=== PATIENT | female | born 1980 | race Hispanic/Latino ===

== ENCOUNTER 2023-09-14 13:34 | Emergency (ER) | payer OTHER, SELFPAY ==
[2023-09-14] MEDS ORDERED: NA CHLORIDE 0.9% 1,000 ML ONE (15:33)
[2023-09-14 16:38] LABS: Specific Gravity < 1.005 (1.005-1.030); Urine Bilirubin NEGATIVE (Negative); Urine Blood Negative (Negative); Urine Clarity Clear (Clear); Urine Color Colorless (Yellow); Urine Glucose NEGATIVE (Negative); Urine Ketones NEGATIVE (Negative); Urine Microscopic Reflex YN NO UMIC; Urine Nitrite NEGATIVE (Negative); Urine Protein NEGATIVE (Negative); Urine Urobilinogen Normal (Normal); Urine pH 6.5 (5.0-7.0)
[2023-09-14 16:53] LABS: Albumin 3.6 g/dL (3.4-5.0); Albumin/Globulin Ratio 0.9 (1.1-1.8); Anion Gap 7.6 mEq/L (5.0-15.0); Bilirubin Total 0.3 mg/dL (0.2-1.0); Globulin 3.8 g/dL (2.3-3.5); Potassium 3.6 mEq/L (3.5-5.1); Protein, Total 7.4 g/dL (6.4-8.2); Troponin High Sensitivity 3.6 pg/mL (<58.9)
[2023-09-14 17:02] LABS: Absolute Eosinophils 0.1 K/uL (0-0.5); Absolute Lymphocytes (CBC) 3.3 K/uL (0.7-4.9); Absolute Monocytes 0.5 K/uL (0.1-1.3); Absolute Neutrophil 3.1 K/uL (1.8-8.0); Basophils % 0.6 % (0-1.3); Eosinophils % 1.6 % (0-4.4); Hematocrit 37.3 % (36.0-45.0); Hemoglobin 12.1 g/dL (12.0-15.0); Lymphocytes % 47.5 % (15.3-44.8); MCH 25.1 pg (27.0-35.0); MCHC 32.5 g/dL (32.0-36.0); MCV 77.3 fL (80-100); MPV 8.8 fL (7.6-11.3); Monocytes % 6.7 % (3.3-12.3); Neutrophils % 43.6 % (41.7-73.7); Nucleated Red Blood Cells % 0.1 % (0-0); Platelets 225 thou/uL (152-406); RBC Red Blood Cell Count 4.83 M/uL (3.86-4.86); Red Cell Distribution Width 14.5 % (12.1-15.2)
--- NOTE | 2023-09-14 17:45 | RAD REPORT ---
EXAM DESCRIPTION: CT - Abdomen Pelvis W Contrast - 09/14/2023 5:18 pm CLINICAL HISTORY: Abdominal pain COMPARISON: none. TECHNIQUE: Computed axial tomography of the abdomen pelvis was obtained. 100 cc Isovue-300 was admin istered intravenously. Oral contrast was not requested which limits evaluation of bowel and appendix All CT scans are performed using dose optimization technique as appropriate and may include automated exposure control or mA/KV adjustment according to patient size. FINDINGS: Cholecystectomy The liver, spleen, pancreas, adrenal and kidneys appear unremarkable. Right extrarenal pelvis There is no evidence of diverticulitis. Normal appendix No adnexal mass Tiny umbilical hernia IMPRESSION: No acute abnormality is displayed.
--- NOTE | 2023-09-14 17:50 | ER ---
Nurse's Notes [facility] Name: Denise Oshea Age: 43 yrs Sex: Female : 1980 Arrival Date: 09/14/2023 Time: 13:34 Bed 9 Private MD: Diagnosis: Upper abdominal pain, unspecified Presentation: 09/13 13:44 Chief complaint: Patient states: Upper abdominal pain since 1115. No fever. Denies ll1 N/V/D. Coronavirus screen: Client denies travel out of the [place] in the last 14 days. At this time, the client does not indicate any symptoms associated with coronavirus-19. Ebola Screen: Patient denies travel to an Ebola-affected area in the 21 days before illness onset. Initial Sepsis Screen: Does the patient meet any 2 criteria? No. Patient's initial sepsis screen is negative. Does the patient have a suspected source of infection? No. Patient's initial sepsis screen is negative. Risk Assessment: Do you want to hurt yourself or someone else? Patient reports no desire to harm self or others. Onset of symptoms was September 14, 2023. 13:44 Method Of Arrival: Ambulatory ll1 13:44 Acuity: MOHIT 3 ll1 Triage Assessment: 13:45 General: Appears uncomfortable, Behavior is calm, cooperative, appropriate for age. ll1 Pain: Complains of pain in epigastric area Quality of pain is described as aching, crampy. GI: Reports lower abdominal pain, upper abdominal pain, cramping. CNA LTC: 16:34 LMP N/A - control method, Not tl4 Historical: - Allergies: 13:46 No Known Allergies; ll1 - Home Meds: 13:46 None [Active]; ll1 - PMHx: 13:46 None; ll1 - PSHx: 13:46 gallstones removed; Tonsillectomy; section; ll1 - Immunization history:: Adult Immunizations up to date. - Infectious Disease History:: Denies. - Social history:: Smoking status: Patient denies any tobacco usage or history of. Screenin:[facility] ED Fall Risk Assessment (Adult) History of falling in the last 3 months, tl4 including since admission No falls in past 3 months (0 pts) Confusion or Disorientation No (0 pts) Intoxicated or Sedated No (0 pts) Impaired Gait No (0 pts) Mobility Assist Device Used No (0 pt) Altered Elimination No (0 pt) Score/Fall Risk Level 0 - 2 = Low Risk Oriented to surroundings, Maintained a safe environment, Educated pt \T\ family on fall prevention, incl call for assistance when getting out of bed, Assessed \T\ reinforced patient's understanding of fall precautions. Abuse screen: Denies threats or abuse. Denies injuries from another. Nutritional screening: No deficits noted. Tuberculosis screening: No symptoms or risk factors identified. Assessment: 16:32 General: Appears in no apparent distress. Behavior is calm, cooperative. Pain: Denies tl4 pain. Neuro: Level of Consciousness is awake, alert, obeys commands, Oriented to person, place, time, situation, Moves all extremities. Full function Speech is normal. Cardiovascular: Capillary refill < 3 seconds Patient's skin is warm and dry. Respiratory: Airway is patent Respiratory effort is even, unlabored, Respiratory pattern is regular, symmetrical, Breath sounds are clear bilaterally. GI: Bowel sounds present X 4 quads. Abd is soft and non tender X 4 quads. : No signs and/or symptoms were reported regarding the genitourinary system. EENT: No signs and/or symptoms were reported regarding the EENT system. Derm: No signs and/or symptoms reported regarding the dermatologic system. Musculoskeletal: No signs and/or symptoms reported regarding the musculoskeletal system. 18:09 Reassessment: Patient and/or family updated on plan of care and expected duration. Pain tl4 level reassessed. Patient is alert, oriented x 3, equal unlabored respirations, skin warm/dry/pink. Patient states feeling better. Patient states symptoms have improved. Vital Signs: 13:44 BP 149 / 92; Pulse 69; Resp 17; Temp 97.3; Pulse Ox 99% ; Weight 88.9 kg; Height 5 ft. ll1 4 in. ; Pain 3/10; 16:33 BP 132 / 78; Pulse 70; Resp 16; Pulse Ox 100% on R/A; Pain 0/10; tl4 18:09 BP 122 / 70; Pulse 70; Resp 16; Temp 98.2(O); Pulse Ox 100% ; Pain 0/10; tl4 13:44 Body Mass Index 33.64 (88.90 kg, 162.56 cm) ll1 13:44 Pain Scale: Adult ll1 16:33 Pain Scale: Adult tl4 18:09 Pain Scale: Adult tl4 ED Course: 13:36 Patient arrived in ED. mg5 13:42 Mary Lou Voss FNP-C [facility]. kb 13:42 Alexis Shin MD is Attending Physician. kb 13:45 Triage completed. ll1 13:46 Arm band placed on. ll1 14:56 Derrek Molina, RN is Primary Nurse. tl4 15:15 Radiology exam delayed due to lab results not completed at this time. (BUN/Creatinine). nj 15:15 Radiology exam delayed due to IV insertion attempt and/or patient not having nj appropriate IV at this time. 15:46 Radiology exam delayed due to lab results not completed at this time. IV insertion nj attempt and/or patient not having appropriate IV at this time. 15:46 Radiology exam delayed due to test not completed at this time. nj 16:31 CBC with Diff Sent. tl4 16:31 CMP Sent. tl4 16:31 Lipase Sent. tl4 16:32 Test, Urine Sent. tl4 16:32 Urinalysis w/ reflexes Sent. tl4 16:32 Troponin High Sensitivity Sent. tl4 16:34 Patient has correct armband on for positive identification. Placed in gown. Bed in low tl4 position. Call light in reach. Side rails up X 1. Provided Education on: ed process, call flores. Client placed on continuous cardiac and pulse oximetry monitoring. NIBP monitoring applied. Door closed. Noise minimized. Lights dimmed. Moved to private room. Warm blanket given. Pillow given. 16:34 No provider procedures requiring assistance completed. Initial lab(s) drawn, by md, tl4 sent to lab. Urine collected: clean catch specimen, clear. Inserted saline lock: 22 gauge in left antecubital area, using aseptic technique. Blood collected. 17:20 CT Abd/Pelvis - IV Contrast Only In Process Unspecified. EDMS 18:08 EKG done, by ED staff, reviewed by Mary Lou CHAVEZ. IV discontinued, intact, tl4 bleeding controlled, No redness/swelling at site. Pressure dressing applied. Administered Medications: 16:32 Drug: NS 0.9% IV 1000 ml IV at 1 bolus Per protocol; 1000 mL bolus Route: IV; Rate: 1 tl4 bolus; Site: left antecubital; Delivery: Primary tubing; 18:11 Follow up: Response: No adverse reaction; IV Status: Completed infusion; IV Intake: tl4 1000ml Medication: 16:33 VIS not applicable for this client. tl4 Intake: 18:11 IV: 1000ml; Total: 1000ml. tl4 Outcome: 17:49 Discharge ordered by MD. arroyo 18:11 Discharged to home ambulatory, tl4 18:11 Condition: stable 18:11 Discharge instructions given to patient, Instructed on discharge instructions, follow up and referral plans. Demonstrated understanding of instructions, follow-up care, 18:12 Patient left the ED. tl4 Signatures: Dispatcher [employer] EDMary Lou Riggins, GROCERY CLERK MARKING-C GROCERY CLERK MARKING-Derek Gates Lynsay, RN RN ll1 Adilia Meraz mg5 Derrek Molina RN RN tl4
--- NOTE | 2023-09-14 17:50 | EDPHYS ---
Physician Documentation [facility] Name: Denise Oshea Age: 43 yrs Sex: Female : 1980 Arrival Date: 09/14/2023 Time: 13:34 Bed 9 Private MD: ED Physician Alexis Shin HPI: 09/13 13:49 This 43 yrs old Female presents to ER via Ambulatory with complaints of kb Abdominal Pain. 13:49 Pt is a 43 year old female who presents for upper abd pain that started at 1115. Denies kb n/v/d/f. 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 States she hit herself in the stomach with something at one point but didn't think anything of it. States the pain has gotten better, but still there. . SAMPLE HAND: 16:34 LMP N/A - control method, Not tl4 Historical: - Allergies: 13:46 No Known Allergies; ll1 - Home Meds: 13:46 None [Active]; ll1 - PMHx: 13:46 None; ll1 - PSHx: 13:46 gallstones removed; Tonsillectomy; section; ll1 - Immunization history:: Adult Immunizations up to date. - Infectious Disease History:: Denies. - Social history:: Smoking status: Patient denies any tobacco usage or history of. ROS: 13:52 Constitutional: As per HPI kb Exam: 13:49 Constitutional: This is a well developed, well nourished patient who is awake, alert, kb and in no acute distress. Head/Face: Normocephalic, atraumatic. ENT: Moist Mucous membranes Cardiovascular: Regular rate Respiratory: Respirations even and unlabored. No increased work of breathing. Talking in full sentences Skin: Warm, dry with normal turgor. Normal color. MS/ Extremity: Pulses equal, no cyanosis. Neurovascular intact. Full, normal range of motion. Neuro: Awake and alert, GCS 15, oriented to person, place, time, and situation. Moves all extremities. Normal gait. 13:52 Abdomen/GI: Inspection: abdomen appears normal, Bowel sounds: normal, Palpation: soft, kb in all quadrants, mild abdominal tenderness, in the epigastric area, right upper quadrant and left upper quadrant, 18:20 ECG was reviewed by the Attending Physician. kb Vital Signs: 13:44 BP 149 / 92; Pulse 69; Resp 17; Temp 97.3; Pulse Ox 99% ; Weight 88.9 kg; Height 5 ft. ll1 4 in. ; Pain 3/10; 16:33 BP 132 / 78; Pulse 70; Resp 16; Pulse Ox 100% on R/A; Pain 0/10; tl4 18:09 BP 122 / 70; Pulse 70; Resp 16; Temp 98.2(O); Pulse Ox 100% ; Pain 0/10; tl4 13:44 Body Mass Index 33.64 (88.90 kg, 162.56 cm) ll1 13:44 Pain Scale: Adult ll1 16:33 Pain Scale: Adult tl4 18:09 Pain Scale: Adult tl4 MDM: 13:42 Patient medically screened. kb 14:04 Differential diagnosis: cholecystitis, Cholelithiasis, gastritis, non-specific abd kb pain, pancreatitis, contusion. Data reviewed: vital signs, nurses notes. 17:47 Counseling: I had a detailed discussion with the patient and/or guardian regarding the kb historical points, exam findings, and any diagnostic results supporting the discharge/admit diagnosis, lab results, radiology results, the need for outpatient follow up, a family practitioner, to return to the emergency department if symptoms worsen or persist or if there are any questions or concerns that arise at home. 09/13 13:54 Order name: CBC with Diff; Complete Time: 17:08 kb 09/13 13:54 Order name: CMP; Complete Time: 16:54 kb 09/13 13:54 Order name: Lipase; Complete Time: 16:54 kb 09/13 13:54 Order name: Test, Urine; Complete Time: 16:39 kb 09/13 13:54 Order name: Urinalysis w/ reflexes; Complete Time: 16:39 kb 09/13 13:54 Order name: Troponin High Sensitivity; Complete Time: 16:54 kb 09/13 13:54 Order name: CT Abd/Pelvis - IV Contrast Only; Complete Time: 17:47 kb 09/13 13:54 Order name: EKG; Complete Time: 13:54 kb 09/13 13:54 Order name: IV Saline Lock; Complete Time: 16:31 kb 09/13 13:54 Order name: Labs collected and sent; Complete Time: 16:31 kb 09/13 13:54 Order name: EKG - Nurse/Tech; Complete Time: 18:08 kb EC:20 Rate is 72 beats/min. Rhythm is regular. QRS [place] is Normal. [place] interval is normal at kb 150 msec. QRS interval is normal at 88 msec. QT interval is normal at 438 msec. Administered Medications: 16:32 Drug: NS 0.9% IV 1000 ml IV at 1 bolus Per protocol; 1000 mL bolus Route: IV; Rate: 1 tl4 bolus; Site: left antecubital; Delivery: Primary tubing; 18:11 Follow up: Response: No adverse reaction; IV Status: Completed infusion; IV Intake: tl4 1000ml Disposition: 19:01 Co-signature as Attending Physician, Alexis Shin MD I reviewed the patient's care rt provided by the Advanced Practice Provider and agree with the diagnosis and treatment plan. Disposition Summary: 09/14/23 17:49 Discharge Ordered Notes: Location: Home kb Condition: Stable kb Diagnosis - Upper abdominal pain, unspecified kb Followup: kb - With: Emergency Department - When: As needed - Reason: Worsening of condition Followup: kb - With: Private Physician - When: 2 - 3 days - Reason: Recheck today's complaints, Continuance of care, Re-evaluation by your physician Discharge Instructions: - Discharge Summary Sheet kb - Abdominal Pain, Adult, [id number] kb Forms: - Medication Reconciliation Form kb - Antibiotic Education kb - Prescription Opioid Use kb - Patient Portal Instructions kb - Leadership Thank You Letter kb - Work release form tl4 Signatures: Dispatcher [employer] EDMary Lou Riggins, CONSUMER EDUCATION SPECIALIST-C TORO-Don Jeffers, RN RN ll1 Alexis Shin MD MD rt Derrek Molina RN RN tl4 Corrections: (The following items were deleted from the chart) 13:54 13:54 CBC+H.LAB.BRZ ordered. EDMS EDMS 13:54 13:54 COMPREHENSIVE METABOLIC PANEL+C.LAB.BRZ ordered. EDMS EDMS 13:54 13:54 LIPASE+C.LAB.BRZ ordered. EDMS EDMS 13:54 13:54 Test, Urine+UC.LAB.BRZ ordered. EDMS EDMS 13:54 13:54 Urinalysis+U.LAB.BRZ ordered. EDMS EDMS 13:54 13:54 Troponin High Sensitivity+C.LAB.BRZ ordered. EDMS EDMS
[2023-09-14 19:47] VITALS: BP 122/70; TEMP 98.2; O2SAT 100
--- NOTE | 2023-09-16 14:09 | EKG ---
Test Date: 2023-09-14 Test Time: 18:04:03 [place] Chief: TL MEASUREMENT RESULTS: Intervals: Rate: 72 MN: 150 QRSD: 88 QT: 400 QTc: 438 [place]: P: 25 MN: 150 QRS: 44 T: 37 INTERPRETIVE STATEMENTS: Normal sinus rhythm Normal ECG No previous ECG available for comparison Electronically Signed On 09-16-23 14:06:46 CDT by Bello Martin
== END 2023-09-14 18:12 | disposition home or self-care (01) ==
LOC: ER 13:34
DX: R10.9 Unspecified abdominal pain (principal)
CPT/HCPCS: 36415; 74177; 80053; 81003; 81025; 83690; 84484; 85025; 93005; 96360; 96361; 99284; J7030; Q9967